=== PATIENT | female | born 1990 | race Caucasian/White ===

== ENCOUNTER 2020-10-28 18:22 | Emergency (ER) | payer OTHER, SELFPAY ==
[~2020-10-28] VITALS: Ht 157.5 cm; Wt 60.5 kg
[2020-10-28 18:23] VITALS: BP 136/87
[2020-10-28] MEDS ORDERED: BOOSTRIX/ADACEL VACCINE (DIPHTH/PERTUSS/ACELL/TETANUS) 0.5ML SYR IM ONE (19:50)
[2020-10-28] MEDS ORDERED: metroNIDAZOLE (FLAGYL) 500MG TABLET PO ONE (19:50)
[2020-10-28] MEDS ORDERED: DOXYCYCLINE HYCLATE 100MG TABLET PO ONE (19:50)
[2020-10-28] MEDS ORDERED: NORCO, ANEXSIA 5/325MG TABLET (HYDROcodone/ACETAMINOPHEN) PO ONE (19:50)
== END 2020-10-28 20:30 | disposition short-term general hospital (02) ==
LOC: M ED 18:22
DX: S01.459A Open bite of unspecified cheek and temporomandibular area, initial encounter (principal); Y92.9 Unspecified place or not applicable; Y93.9 Activity, unspecified; Y99.9 Unspecified external cause status; Z88.1 Allergy status to other antibiotic agents; W54.0XXA Bitten by dog, initial encounter